=== PATIENT | male | born 1980 | race Caucasian/White ===

== ENCOUNTER 2019-08-17 09:28 | Emergency (ER) | payer BC, OTHER ==
[2019-08-17 09:46] VITALS: BP 154/106
--- NOTE | 2019-08-17 11:10 | UC ---
FLU HPI - HPI Summary HPI Summary: 38 yo man with 4 day history of malaise, fatigue, nasal congestion and now increasing cough and myalgias. His is currently on antibiotics for a similar illness. No hx of asthma or lung disease. Has been using Dayquil, last dose yesterday. 7 mo son now has a fever, being evaluated today. - History of Current Complaint Chief Complaint: UCGeneralIllness Stated Complaint: RESPIRATORY ISSUE Time Seen by Provider: 08/17/19 11:03 Hx Obtained From: Patient Onset/Duration: Gradual Onset, Lasting Days Severity Currently: Mild Severity Initially: Moderate Pain Intensity: 2 Associated Signs & Symptoms: Positive: Cough, Sore Throat, Nasal Congestion - Allergy/Home Medications Allergies/Adverse Reactions: Allergies Allergy/AdvReac Type Severity Reaction Status Date / Time mike Allergy Swelling Verified 08/17/19 09:47 Home Medications: Home Medications NK [No Home Medications Reported] 08/17/19 [History Confirmed 08/17/19] PMH/Surg Hx/FS Hx/Imm Hx Previously Healthy: Yes - Surgical History Surgical History: None - Social History Occupation: Unemployed Lives: With Family Alcohol Use: None Substance Use Type: None Smoking Status (MU): Never Smoked Tobacco Review of Systems All Other Systems Reviewed And Are Negative: Yes Constitutional: Positive: Chills, Fatigue Skin: Positive: Negative Eyes: Positive: Negative ENT: Positive: Sore Throat, Nasal Discharge, Sinus Congestion Respiratory: Positive: Cough. Negative: Shortness Of Breath Cardiovascular: Negative: Palpitations, Chest Pain Gastrointestinal: Positive: Negative Genitourinary: Positive: Negative Motor: Positive: Negative Neurovascular: Positive: Negative Musculoskeletal: Positive: Negative Neurological: Positive: Negative Psychological: Positive: Negative Is Patient Immunocompromised?: No Physical Exam Triage Information Reviewed: Yes Appearance: No Pain Distress, Ill-Appearing - looks mildly unwell Vital Signs: Initial Vital Signs Temp 98.4 F 08/17/19 09:40 Pulse 108 08/17/19 09:40 Resp 20 08/17/19 09:40 BP 154/106 08/17/19 09:40 Pulse Ox 97 08/17/19 09:40 Eyes: Positive: Conjunctiva Clear ENT: Positive: Pharyngeal erythema, Nasal congestion, TMs normal. Negative: Tonsillar swelling Neck: Positive: Supple, Nontender, No Lymphadenopathy Respiratory: Positive: Lungs clear, Normal breath sounds Cardiovascular: Positive: RRR, No Murmur Musculoskeletal Exam: Normal Neurological Exam: Normal Psychological Exam: Normal Skin Exam: Normal Diagnostics - Laboratory Lab Results: rapid flu negative Flu Course/Dx - Course Course Of Treatment: symptomatic treatment of viral respiratory illness. - Differential Dx/Diagnosis Differential Diagnosis/HQI/PQRI: Influenza, Upper Respiratory Infection Provider Diagnosis: URI, acute Discharge ED - Sign-Out/Discharge Documenting (check all that apply): Patient Departure All imaging exams completed and their final reports reviewed: No Studies - Discharge Plan Condition: Stable Disposition: HOME Patient Education Materials: Upper Respiratory Infection (ED) Referrals: No Primary Care Phys,NOPCP [Primary Care Provider] - Additional Instructions: Your symptoms and findings suggest a viral illness. Continue symptomatic treatment with fluids, rest and over the counter medications such as Delsym cough suppressant. Follow up if you develop fever or shortness of breath, but anticipate that symptoms can persist for up to 7 days. - Billing Disposition and Condition Condition: STABLE Disposition: Home
[2019-08-17 11:32] LABS: Influenza A Molecular NEGATIVE (Negative); Influenza B Molecular NEGATIVE (Negative)
== END 2019-08-17 12:12 | disposition home or self-care (01) ==
LOC: UCEAST 09:28
DX: J06.9 Acute upper respiratory infection, unspecified (principal); R05 Cough; J02.9 Acute pharyngitis, unspecified; Z91.018 Allergy to other foods
CPT/HCPCS: 99201; G0463